=== PATIENT | female | born 1975 | race Caucasian/White ===

== ENCOUNTER 2016-11-29 05:27 | Inpatient (IN) | payer OTHER ==
[~2016-11-29] VITALS: Ht 175.3 cm; Wt 83.5 kg
[~2016-11-29 05:27] MED LIST: CLARITIN,ALAVAR10 MG PO; IBUPROFEN400 MG PO; MOTRIN800 MG PO; XANAX0.25 MG PO
[2016-11-29 05:57] VITALS: BP 128/79
[2016-11-29 10:53] VITALS: BP 122/71
[2016-11-29 15:25] VITALS: BP 116/71
[2016-11-29 16:39] LABS: MCHC 32.8 G/DL (30.0-36.0); MCV 91.3 FL (83-99); MEAN PLAT.VOLUME 10.6 uM^3 (9.5-12.4); PLATELET COUNT 176 K/uL (156-360); RBC DIS.WIDTH-CV 13.2 % (11.8-14.6); RBC DIS.WIDTH-SD 44.9 % (39-53); RED BLOOD COUNT 4.27 M/uL (3.80-5.20)
[2016-11-29 17:06] LABS: ANION GAP 7 MEQ/L (2-14); CHLORIDE 105 MEQ/L (99-109); GFR ESTIMATE (CALCULATED) > 59 mL/min/; POTASSIUM 3.8 MEQ/L (3.7-5.4); SAMPLE HEMOLYSIS CHECK 0; SAMPLE ICTERIC CHECK 0; SAMPLE LIPEMIA CHECK 0; SODIUM 136 MEQ/L (136-147); UREA NITROGEN (BUN) 9 mg/dL (9-23)
[2016-11-29 17:47] LABS: GLUCOSE 159 mg/dL (70-99)
[2016-11-29 20:03] VITALS: BP 125/65
[2016-11-29 23:45] VITALS: BP 119/59
[2016-11-30 06:16] LABS: HEMATOCRIT 33.5 % (36.0-46.0); MCH 30.7 PG (29.0-34.0); MCHC 33.7 G/DL (30.0-36.0); MEAN PLAT.VOLUME 10.6 uM^3 (9.5-12.4); PLATELET COUNT 144 K/uL (156-360); RBC DIS.WIDTH-CV 13.2 % (11.8-14.6); RBC DIS.WIDTH-SD 44.4 % (39-53); RED BLOOD COUNT 3.68 M/uL (3.80-5.20); WHITE BLOOD COUNT 11.2 K/uL (4.1-10.2)
[2016-11-30 06:38] LABS: ANION GAP 7 MEQ/L (2-14); CHLORIDE 106 MEQ/L (99-109); GFR ESTIMATE (CALCULATED) > 59 mL/min/; GLUCOSE 126 mg/dL (70-99); POTASSIUM 3.3 MEQ/L (3.7-5.4); SAMPLE HEMOLYSIS CHECK 0; SAMPLE ICTERIC CHECK 0; SAMPLE LIPEMIA CHECK 0; SODIUM 137 MEQ/L (136-147); UREA NITROGEN (BUN) 6 mg/dL (9-23)
[2016-11-30 06:53] VITALS: BP 1119/65
[2016-11-30 07:15] VITALS: BP 118/62
[2016-11-30 11:15] VITALS: BP 124/60
[2016-11-30] MEDS ORDERED: TRAMADOL HCL50 MG PO (11:36)
== END 2016-11-30 12:26 | disposition home or self-care (01) | DRG 742 ==
LOC: 2SOUTH 05:27 → 2EAST 05:27 → 2SOUTH 12:38 → 2EAST 11-30 12:26
PROVIDERS: Obstetrics & Gynecology Gynecologic Oncology
DX: D25.9 Leiomyoma of uterus, unspecified (principal); N80.0 Endometriosis of uterus; N93.8 Other specified abnormal uterine and vaginal bleeding; I47.1 Supraventricular tachycardia; F41.9 Anxiety disorder, unspecified; K21.9 Gastro-esophageal reflux disease without esophagitis
CPT/HCPCS: 36415; 80048; 80076; 81003; 83036; 84702; 85025; 85027; 85610; 85730; 86900; 86901; 86920; 88302; 88307; J0131; J0690; J1100; J1170; J1650; J1885; J2250; J2270; J2405; J2550; J2765; J3010